=== PATIENT | female | born 1990 | race Hispanic/Latino ===

== ENCOUNTER 2023-12-16 02:05 | Emergency (ER) | payer SELFPAY ==
--- NOTE | ~2023-12-16 | XR_ITS ---
Left Knee Technique: AP, lateral, and oblique views were obtained. Clinical History: Injury Findings: No fracture or dislocation is seen. Osseous alignment is anatomic. Joint spaces are preserv ed without degenerative or erosive change. Soft tissues are unremarkable. No joint effusion is seen. Impression: Unremarkable left knee radiographs. Reviewed, dictated and finalized at [facility]. Impression: Unremarkable left knee radiographs.
[2023-12-16 02:13] VITALS: BP 116/64; PULSE 103; RESP 15; TEMP 36.6; O2SAT 98
[2023-12-16 06:40] VITALS: BP 125/76; PULSE 86; RESP 16; TEMP 36.7; O2SAT 98
--- NOTE | 2023-12-16 08:54 | ED.LOWEXIN ---
HPI - Extremity Injury (Lower) General Chief Complaint: Extremity Injury, Lower Stated Complaint: L knee injury, fall Time Seen by Provider: 12/16/23 06:42 History of Present Illness HPI Narrative: 33-year-old female no medical problems presents to the emergency room for evaluation of left knee injury. Patient states that she was walking when she slipped twisting her left knee. Patient unable to ambulate or bear weight. Patient states she took Tylenol with some improvement in pain. No history of injuries to left knee. Review of Systems Review of Systems: ROS unremarkable except for noted in HPI Exam Narrative: GENERAL: Well-appearing, well-nourished, no physical limitations, and in no acute distress. HEAD: Normocephalic, atraumatic. EYES: Conjunctivae normal, PERRLA and EOMI. CHEST: Clear to auscultation. No respiratory distress. No wheezes rales or rhonchi. HEART: Regular rate and rhythm. No murmur heard. Normal peripheral pulses. EXTREMITIES: left knee: +TTP lateral to patella. No obvious bony abnormality, swelling or ecchymosis. Unable to flex knee and evaluate for stability due to pain SKIN: Warm, dry, no rash. No noted wounds NEURO: No focal deficits. Alert and oriented x3. MAEW. CN's II-XI intact bilaterally, using crutches, unable to bear weight on left le PSYCH: Cooperative. Normal mood and affect. Course Vital Signs Vital signs: Vital Signs Temperature 36.6 C 12/16/23 02:13 Pulse Rate 103 H 12/16/23 02:13 Respiratory Rate 15 12/16/23 02:13 Blood Pressure 116/64 12/16/23 02:13 Pulse Oximetry 98 12/16/23 02:13 Oxygen Delivery Room Air 12/16/23 02:13 Temperature 36.7 C 12/16/23 06:40 Pulse Rate 86 12/16/23 06:40 Respiratory Rate 16 12/16/23 06:40 Blood Pressure 125/76 12/16/23 06:40 Pulse Oximetry 98 12/16/23 06:40 Oxygen Delivery Room Air 12/16/23 02:13 MDM - Extremity Injury (Lower) Imaging Data Radiologist's impression: Impressions Knee X-Ray 12/16/23 05:56 Impression: Unremarkable left knee radiographs. Discharge Plan Discharge Clinical Impression: Acute pain of left knee Patient Disposition: Home, Self-Care Condition: Stable Instructions: Antibiotic Form Prescriptions: New naproxen 500 mg tablet 500 mg PO BID Qty: 20 0RF Follow-up/Referrals: Willian Sprague MD [Physician] - UNKNOWN,DOCTOR [Primary Care Provider] - Time of Disposition: 09:10
[2023-12-16 09:26] VITALS: BP 132/84; PULSE 81; RESP 16; O2SAT 98
== END 2023-12-16 09:28 | disposition home or self-care (01) ==
PROVIDERS: Emergency Provider Nurse Practitioner Family
DX: S89.92XA Unspecified injury of left lower leg, initial encounter (principal); W01.0XXA Fall on same level from slipping, tripping and stumbling without subsequent striking against object, initial encounter; X50.9XXA Other and unspecified overexertion or strenuous movements or postures, initial encounter
CPT/HCPCS: 73562; 99283

== ENCOUNTER 2025-01-23 12:14 | Emergency (ER) | payer SELFPAY ==
--- NOTE | 2025-01-23 12:22 | ED_ITS ---
HPI - Ear Problem General Chief complaint: Ear Stated complaint: Ears Irritation Time Seen by Provider: 01/23/25 12:22 Source: patient Mode of arrival: ambulatory Limitations: no limitations History of Present Illness HPI Narrative: 34 yo F presents with c/o R ear pain. Afebrile. All systems reviewed and negative except as noted above. Related Data Allergies Allergy/AdvReac Type Severity Reaction Status Date / Time No Known Drug Allergies Allergy none Verified 01/23/25 12:29 PMFSH Comments At time of signature, agree with nursing past medical, surgical, social and family history. There is no relevant family history pertinent to the presenting complaint. Exam Narrative: GENERAL: This is a well-nourished, well-developed patient, in no apparent distress. HEAD: normocephalic, atraumatic. EYES: PERRL. Sclera clear/white. Vision is grossly intact. EARS: External ears normal, R ear canal is swollen and erythematous. tender on exam, no drainage. L ear canal normal. Unable to evaluate R TM due to ear canal swelling. L TM normal. Hearing grossly intact. NOSE: External nose normal NECK: Neck supple, non-tender without lymphadenopathy, masses or thyromegaly. CARDIOVASCULAR: Regular rate and rhythm without murmurs, gallops, or rubs. RESPIRATORY: Clear to auscultation. Breath sounds equal bilaterally. No wheezes, rales, or rhonchi. SKIN: warm, Dry, intact with no suspicious lesions or rash, good texture and turgor. NEURO: awake, alert, and oriented to person, place and time. There were no obvious focal neurologic abnormalities. EXTREMITIES: No joint tenderness, effusion, or edema noted. Course Course Level of Care: Express Care Visit Vital Signs Vital signs: Vital Signs Temperature 36.6 C 01/23/25 12:23 Pulse Rate 67 01/23/25 12:23 Respiratory Rate 18 01/23/25 12:23 Blood Pressure 104/66 01/23/25 12:23 Pulse Oximetry 98 01/23/25 12:23 Oxygen Delivery Room Air 01/23/25 12:23 Temperature 36.6 C 01/23/25 12:23 Pulse Rate 67 01/23/25 12:23 Respiratory Rate 18 01/23/25 12:23 Blood Pressure 104/66 01/23/25 12:23 Pulse Oximetry 98 01/23/25 12:23 Oxygen Delivery Room Air 01/23/25 12:23 reviewed Procedures Other Procedure Procedure 1: Other Procedure: ear wick placed to R ear canal Medical Decision Making MDM Narrative Medical decision making narrative: Ear wick placed to R ear canal due to significant swelling. Will prescribe cipro dex to treat otitis externa. pt voiced understanding of treatment plan and diagnosis. Vital Signs Vital Signs: Vital Signs Temperature 36.6 C 01/23/25 12:23 Pulse Rate 67 01/23/25 12:23 Respiratory Rate 18 01/23/25 12:23 Blood Pressure 104/66 01/23/25 12:23 Pulse Oximetry 98 01/23/25 12:23 Oxygen Delivery Room Air 01/23/25 12:23 Temperature 36.6 C 01/23/25 12:23 Pulse Rate 67 01/23/25 12:23 Respiratory Rate 18 01/23/25 12:23 Blood Pressure 104/66 01/23/25 12:23 Pulse Oximetry 98 01/23/25 12:23 Oxygen Delivery Room Air 01/23/25 12:23 Discharge Plan Discharge Clinical Impression: Acute otitis externa of right ear Qualifiers: Otitis externa type: unspecified type Qualified Code(s): H60.501 - Unspecified acute noninfective otitis externa, right ear Patient Disposition: Home Condition: Stable Instructions: Antibiotic Form, Swimmer's Ear (ED) Additional Instructions: Hoy le colocaron zack compresa en el o?do derecho. [facility] ayuda a que el antibi?ingrid trate landis infecci?n de o?do. La compresa se caer? anitha despu?s de que la inflamaci?n del conducto auditivo derecho mejore. [facility] Tylenol o ibuprofeno cada 6 a 8 horas seg?n sea necesario para el dolor. Si el dolor no mejora, consulte con landis m?dico de cabecera. Patient Language: Maori Prescriptions: New ciprofloxacin-dexamethasone 0.3-0.1 % drops,suspension 4 drp RIGHT EAR Q12H 7 Days Qty: 7.5 0RF Follow-up/Referrals: PHYSICIAN,SENIOR HARDWARE ENGINEER [Primary Care Provider, Internal Medicine] Time of Disposition: 12:42
[2025-01-23 12:23] VITALS: BP 104/66; PULSE 67; RESP 18; TEMP 36.6; O2SAT 98
== END 2025-01-23 12:50 | disposition home or self-care (01) ==
PROVIDERS: Emergency Provider Nurse Practitioner Family
DX: H60.501 Unspecified acute noninfective otitis externa, right ear (principal)
CPT/HCPCS: 99213; G0463